=== PATIENT | female | born 1955 | race Caucasian/White ===

== ENCOUNTER → 2017-01-08 | Day surgery (SDC) | payer BC ==
[~2017-01-08] VITALS: Ht 162.6 cm; Wt 98.1 kg
[~2017-01-08] MED LIST: BACTRIM DS1 TAB PO; FLOMAX0.4 MG PO; HYDROCODON-ACE1 EAC4 PO; ZOFRAN8 MG PO
--- NOTE | ~2017-01-08 | OR ---
PATIENT'S NAME: RAI JUDGE [facility] AGE: 61 Y [address] ROOM: [place] [address] LOCATION: [facility] [place] ADMIT DATE: 01/08/2017 OR/Procedure Report DISCHARGE DATE: FAMILY PHYSICIAN: Fernando Canales MD ATTENDING PHYSICIAN: Greg Mckenna SURGEON: Greg Mckenna MD [facility] REPRESENTATIVE: DATE OF PROCEDURE: 01/08/2017 PREOPERATIVE DIAGNOSIS: Symptomatic left ureterolithiasis and right nephrolithiasis. POSTOPERATIVE DIAGNOSIS: Symptomatic left ureterolithiasis and right nephrolithiasis. PROCEDURES: 1. Cystoscopy with left ureteroscopy and stent placement. 2. Right ESWL. ANESTHESIA: General. INDICATION: This is a 61-year-old lady with the above-noted diagnoses. She had been into see Dr. Canales over the weekend with acute left-sided symptoms. They got those symptoms under control. She was managed conservatively. She followed up yesterday. She was still having left lower quadrant pain. She was referred up for management. I have reviewed her CT scan. She has a left distal ureteral calculus and a right lower pole calculus. They bring the stone with them. She passed that over the weekend. Maybe it is the offending stone, but she is still having left lower quadrant pain. Per her preference, we will go ahead and treat the right-sided stone with ESWL while we evaluate the left distal stone. PROCEDURE IN DETAIL: Having obtained her informed consent, the patient was taken to the operating room. She was prepped and draped sterilely and in lithotomy position. General anesthesia was administered. A 21-[place] cystoscope was assembled and guided into the urethra. The course of the urethra was unremarkable. The bladder itself demonstrates no tumors, stones, or foreign bodies. Bladder examination was confirmed with a 70-degree lens. Under fluoroscopy, there was a density in the left hemipelvis. I suspect that is a phlebolith based on her CT scan. I passed a guidewire up the left side, we got immediate bloody debris. The left orifice and intramural tunnel are dilated. I then passed the semi-rigid scope. We saw some edema and erythema in the bleeding area where I suspect the stone had been stuck. I do not find PATIENT'S NAME: RAI JUDGE [facility] AGE: 61 Y [address] ROOM: [place], [place] [address] LOCATION: [facility] [place] ADMIT DATE: 01/08/2017 OR/Procedure Report DISCHARGE DATE: FAMILY PHYSICIAN: Fernando Canales MD ATTENDING PHYSICIAN: Greg Mckenna a stone. Her system is mildly dilated and I can walk the scope all the way to the UPJ. There was no obvious stone higher. We could easily see the stone on the right side. With no stone retrieved and with the bleeding and edema, I opted to stent the left side. My safety wire was back-loaded into the cystoscope. Over that, we passed a 4.8 multi-length stent with the Dangler string in place. We have a nice level of placement cystoscopically and fluoroscopically. The bladder was drained. This portion of the case was concluded. The patient was now moved to the lithotripsy suite. The right-sided stone was brought into the second focal point, ellipsoid, and fragmentation was begun. We started at 16 kV and worked up to a maximum of 24 kV. After 2000 impulses, the stone was no longer appreciable. The patient tolerated the procedures well. Blood loss was negligible. We will send the above-noted stone for analysis. The patient returned to recovery awake and stable condition. GREG MCKENNA MD /modl /[id number] CC: Fernando Canales MD d: 01/08/171999 t: 01/15/17 1111, OPERATIVE SUMMARY
== END | disposition disaster alternative care site (69) ==
LOC: GPOC 01-07 16:30 → GSDC 11:00
PROC: 0T778DZ Dilation of Left Ureter with Intraluminal Device, Via Natural or Artificial Opening Endoscopic (ICD-10-PCS; principal; 2017-01-08)
PROC: 0TF3XZZ Fragmentation in Right Kidney Pelvis, External Approach (ICD-10-PCS; 2017-01-08)
DX: N13.2 Hydronephrosis with renal and ureteral calculous obstruction (principal); Z88.8 Allergy status to other drugs, medicaments and biological substances; Z90.710 Acquired absence of both cervix and uterus; Z98.890 Other specified postprocedural states
CPT/HCPCS: C1725; C1769; C2617; J1100; J1956; J2405; J7120